=== PATIENT | male | born 1965 | race Caucasian/White ===

== ENCOUNTER 2024-11-07 10:47 | Emergency (ER) | payer SELFPAY ==
[~2024-11-07] VITALS: Ht 185.4 cm; Wt 108.9 kg
[~2024-11-07 10:47] MED LIST: AMOCLA875; AMOCLA875 PO; AMOX500 PO; CEPH500 PO; CRUTCH2 USE; CYCL10 PO; DEXA4 PO; HYDACE5 PO; HYDR1TAB94 PO; IBUP800 PO; OXYACE5T PO; PENVK500 PO; PRED10 PO; PRED20 PO; TOBR.3OPSO OD
[2024-11-07] MEDS ORDERED: Lidocaine 2% Viscous Soln 15 ML UDC PO ONE (11:05)
[2024-11-07 12:00] VITALS: BP 169/108
== END 2024-11-07 12:23 | disposition home or self-care (01) ==
LOC: ER 10:47
DX: R07.2 Precordial pain (principal); J45.909 Unspecified asthma, uncomplicated; F17.210 Nicotine dependence, cigarettes, uncomplicated; Z88.5 Allergy status to narcotic agent
CPT/HCPCS: 71045; 93005; 93010; 99284-25; A9270